=== PATIENT | female | born 1975 | race Caucasian/White ===

== ENCOUNTER → 2020-07-18 07:57 | Outpatient (CLI) | payer OTHER, SELFPAY ==
[2020-07-18 09:15] LABS: COVID19 -Nasal RAPID Negative (Negative)
== END ==
PROVIDERS: Visit Provider Obstetrics & Gynecology
DX: Z01.812 Encounter for preprocedural laboratory examination (principal); Z20.822 Contact with and (suspected) exposure to COVID-19
CPT/HCPCS: 87635

== ENCOUNTER 2020-07-19 06:43 | Day surgery (SDC) | payer OTHER, SELFPAY ==
[2020-07-19] VITALS (7 sets, daily range): BP systolic 91–129; BP diastolic 51–90; PULSE 71–103; RESP 10–19; TEMP 36.2–37.1; O2SAT 91–97; BMI 42.7
--- NOTE | 2020-07-19 | PATH_ITS ---
[facility] Accession Number: [id number] . 01 Material submitted: . PART A: endocervix - ENDOCERVICAL CURETTING PART B: endometrium - ENDOMETRIAL CURETTING . 01 Clinical history: . SDC . 02 Diagnosis: A. Endocervical Curetting: Portions of lower uterine segment/endometrium with patchy regions of stromal breakdown and weakly proliferative endometrium; negative for glandular hyperplasia, cytologic atypia, or malignancy. Some endometrial fragments demonstrate prominent vessels, suggestive of polyp, if clinical and imaging studies are concordant. Very scant strips of glandular epithelium, possibly from endocervix. Please see comment. . B. Endometrial Curetting: Portions of weakly proliferative endometrium with patchy stromal breakdown; negative for glandular hyperplasia, cytologic atypia, or malignancy. [facility] 07/25/2020 0938 Local . 02 Comment: Part A: Due to the scant nature of this biopsy, it may not be entirely sales representative jewelry of this patient's endocervix; additional sampling could be considered, if clinically appropriate. . 02 Electronically signed: . Sofya Silva MD, Pathologist NPI- [id number] . 01 Gross description: . A. Specimen A is received in formalin labeled endocervical curettings and consists of multiple tyler-pink fragments of soft tissue, measuring 1.0 x 0.7 x 0.2 cm in aggregate. The specimen is filtered and entirely submitted in cassette A1. B. Specimen B is received in formalin labeled endometrial curettings and consists of multiple red-brown fragments of soft tissue, measuring 2.0 x 1.5 x 0.3 cm in aggregate. The specimen is filtered and entirely submitted in cassette B1. ([id number]) /[facility] 07/20/2020 1654 Local . 02 Pathologist provided ICD-10: R87.619 . 02 CPT . 516266, [id number] Performed at: 01 [facility] [address] [address], [place], [place] [id number] MD Michele Silva MD Phone: [phone] Performed at: [address] [facility] [id number] [place], [place] [id number] MD Imani Castle MD Phone: [phone]
--- NOTE | 2020-07-19 07:27 | SUR.OPER ---
Lithotomy on padded OR bed, head on pillow, arms secured on padded arm boards at <90 degrees abduction. Legs secured in padded yellow fins stirrups.
[2020-07-19] MEDS: LACTATED RINGERS 1,000 ML 100 ML IV (07:29)
--- NOTE | 2020-07-19 07:44 | PM.HP.1 ---
History of Present Illness History of Present Illness Date Patient Seen: 07/19/20 Time Patient Seen: 07:44 Chief complaint: [facility] [place] Narrative: Patient is a 44-year-old 5 para 4 who presents for a fractional D&C hysteroscopy. She has had abnormal uterine bleeding over the last several weeks. She had an ultrasound on June 18, 2020 which showed a 26.1 mm endometrial lining. She had an endometrial biopsy which showed possible polyp. She also had a Pap smear on June 12, 2020 which showed atypical glandular cells of undetermined significance. Patient History Medical History (Updated 07/19/20 @ 07:22 by Imani Church RN) Hypertension TRINIDAD on CPAP Meds Home Medications and Allergies Home Medications Medication Instructions Recorded Confirmed Type lisinopril 20 mg PO DAILY 07/19/20 07/19/20 History medroxyprogesterone 10 mg PO DAILY 07/19/20 07/19/20 History Allergies Allergy/AdvReac Type Severity Reaction Status Date / Time No Known Drug Allergies Allergy Verified 07/19/20 07:22 Exam Vital Signs (past 8 hours): HEENT: No thyromegaly, no anterior cervical or supraclavicular lymphadenopathy. Lungs:Clear to auscultation bilaterally, no wheezes. Cardiovascular: Regular rate and rhythm, no murmurs, rubs, or gallops. Abdomen: No scars. No hepatosplenomegaly. No masses palpable. External genitalia: Normal Vagina: Normal Cervix: Normal parous Bimanual exam: [10 Week size uterus. Mobile.] No adnexal masses or tenderness Assessment & Plan Assessment & Plan narrative: Assessment: 44-year-old 5 para 4 with abnormal uterine bleeding, MESSI on Pap smear, 26 mm endometrial lining, and endometrial biopsy with possible polyp Plan: Fractional D&C hysteroscopy The risks, benefits, and alternatives to the procedure were explained to the patient. The risks including bleeding, infection, and uterine perforation. She understands these risks and agrees to proceed. A full par Q was held and consent form was signed. COVID-19 COVID-19 status: Negative Result date/Date tested (Pos, Neg/Pending): 07/18/20 Time Spent With Patient Time with patient: 15-24 minutes
--- NOTE | 2020-07-19 07:50 | PM.PREOP ---
Pre-operative Note COVID-19 COVID-19 status: Negative Result date/Date tested (Pos, Neg/Pending): 07/18/20 Interval Note History & Physical reviewed/Exam performed by Physician: Yes Changes to H&P: No H&P completed within 30 days and has changed as indicated here:: 07/19/20
--- NOTE | 2020-07-19 08:31 | P.OP_ITS ---
Operative Date/Time/Diagnoses Date of procedure: 07/19/20 Time of procedure: 08:31 Pre-op diagnosis: Abnormal uterine bleeding MESSI on Pap Endometrial hyperplasia Post-op diagnosis: same Procedure & Clinicians Procedure: Procedures Operation Date: 07/19/20 07:45 Actual Procedures Side Surgeon p Patrizia D&C Hysteroscopy Emily Nicole MD Indications: Abnormal uterine bleeding Endometrial hyperplasia MESSI on Pap Surgeon: Emily Nicole Anesthesia Type: General (LMA) Operative Notes Findings: 10 week size anteverted uterus Both fallopian tube ostia observed Thickened lining on the anterior wall of the uterus Cervical canal appears normal Closure Type: not applicable Specimen(s): endometrial curettings and other (Endocervical curetting) Estimated blood loss (mL): 10 Blood products transfused: none Procedure in detail: After informed consent was obtained, the patient was taken to the operating room where she was placed in the dorsal supine position. After adequate LMA general anesthesia was achieved, she was placed in the dorsal lithotomy position, and prepped and draped in the usual sterile fashion. A time-out was performed. A bivalve speculum was placed into the vagina and the anterior lip of the cervix grasped with a single-tooth tenaculum. The cervical os was sequentially dilated until the hysteroscope could pass easily into the endometrial cavity. Initial inspection of the endometrium revealed both fal lopian tube ostia. There was thickened endometrium on the anterior wall of the uterus. The hysteroscope was removed. Curettage of the endocervical canal was performed and sent to pathology. Sharp curettage of the endometrium with attention to the anterior wall performed and sent as endometrial curettings. The instruments were removed from the uterus. The single-tooth tenaculum was removed from the anterior lip of the cervix. The bivalve speculum was removed from the vagina. Sponge, lap, and instrument counts were correct x2. The patient tolerated the procedure well, and was taken to PACU in stable condition. Complications: none Post-operative Condition: stable Disposition: PACU Plan for aftercare: Home after recovery
== END 2020-07-19 09:31 | disposition home or self-care (01) ==
PROVIDERS: Referring Provider Obstetrics & Gynecology; Visit Provider Obstetrics & Gynecology
PROC: 0UDB8ZZ Extraction of Endometrium, Via Natural or Artificial Opening Endoscopic (ICD-10-PCS; CPT 58558; principal; 2020-07-19 07:45)
DX: R87.619 Unspecified abnormal cytological findings in specimens from cervix uteri (principal); N93.9 Abnormal uterine and vaginal bleeding, unspecified; N85.00 Endometrial hyperplasia, unspecified; I10 Essential (primary) hypertension; G47.33 Obstructive sleep apnea (adult) (pediatric)
CPT/HCPCS: 58558; 81025; J1100; J1885; J2250; J2405; J2704; J3010